=== PATIENT | female | born 1955 | race Caucasian/White ===

== ENCOUNTER 2017-06-16 15:26 | Inpatient (IN) ==
--- NOTE | 2017-06-16 16:01 | XRay Report ---
HISTORY: Reason for Exam:hypoxia, weakness FINDINGS: There are mild generalized alveolar opacities in both lungs. The greatest involvement is around the left hilum. This is a chronic or recurrent finding which was also seen in 2015. Heart size is upper limits of normal. No pleural effusion is present. Aorta is mildly tortuous. IMPRESSION: Mild bilateral infiltrates which could be due to pneumonia or congestive heart failure Interpreted and Authenticated by: Marcial Beltre 06/16/17
[2017-06-16 16:07] LABS: Basophils # (Auto) 0.1 K/mcL (0.0-0.3); Basophils % (Auto) 0.4 % (0.0-2.0); Eosinophils # (Auto) 0.5 K/mcL (0.0-0.7); Eosinophils % (Auto) 3.7 % (0.0-7.0); Granulocytes % (Auto) 78.9 % (38.0-78.0); Lymphocytes # (Auto) 1.8 K/mcL (1.5-4.8); Lymphocytes % (Auto) 13.3 % (15.5-49.0); Mean Corpuscular HGB Conc 33.3 g/dL (31.0-36.0); Mean Corpuscular Hemoglobin 32.3 pg (26.0-34.0); Monocytes # (Auto) 0.5 K/mcL (0.1-0.9); Monocytes % (Auto) 3.7 % (1.0-12.0); Platelet Count 394 K/mcL (140-440); RBC 3.89 M/mcL (4.00-5.20); Red Cell Distribution Width 14.7 % (11.5-14.5)
[2017-06-16] MEDS ORDERED: LEVOFLOXACIN 500 MG/100 ML BAG IV ONE (16:23)
[2017-06-16 16:45] LABS: ALT/SGPT 19 U/l (0-40); Albumin 3.4 gm/dL (3.2-5.2); Albumin/Globulin Ratio 0.9 (1.0-2.3); Alkaline Phosphatase 77 U/L (39-117); Blood Urea Nitrogen 67 mg/dl (8-23)
--- NOTE | 2017-06-16 17:06 | Emergency Department Note ---
Weakness HPI - General Chief complaint: Weakness Stated complaint: weakness, shakey, wheezing Time Seen by Provider: 06/16/17 15:32 Source: patient, EMS Mode of arrival: ambulatory Limitations: no limitations - History of Present Illness HPI Narrative: 61-year-old female presents with multiple complaints. Denies shortness of breath but has had a cough for the last few days. It is nonproductive. States Thursday night she just started feeling poorly in general. Positive chills, unknown fever. Mild sore throat. Mild nasal congestion. Positive nausea. No vomiting or diarrhea. No difficulty breathing or chest pain. She called EMS today because she just generally was not feeling well. Denies abdominal pain. No dysuria or frequency. EMS reports blood pressure of 90/60 by palpation and oxygen saturations in the low 80s on their arrival. Her on her arrival here she is 78% on room air. Denies shortness of breath but states she is breathing a little harder than she thought she normally does. States she lives at home with her sister and usually cares for herself. - Related Data Home Medications Medication Instructions Recorded Confirmed Acetaminophen W/Codeine #3 1 tab PO PRN PRN 07/13/15 07/13/15 [Tylenol #3] Gabapentin [Neurontin] 100 mg PO BID 07/13/15 07/13/15 Citalopram [Celexa] 20 mg PO DAILY 06/16/17 06/16/17 Cyclobenzaprine [Flexeril] 10 mg PO BIDP PRN 06/16/17 06/16/17 Furosemide [Lasix] 40 mg PO DAILY 06/16/17 06/16/17 Gabapentin 600 mg PO TIDP PRN 06/16/17 06/16/17 HYDROcodone/APAP 10/325MG [[place] 1 tab PO Q4H PRN 06/16/17 06/16/17 10-325Mg] Lisinopril [Zestril] 20 mg PO DAILY 06/16/17 06/16/17 Potassium Chloride [Klor-Con 10] 20 meq PO BID 06/16/17 06/16/17 amLODIPine [Norvasc] 5 mg PO DAILY 06/16/17 06/16/17 buPROPion [Wellbutrin Xl] 150 mg PO DAILY 06/16/17 06/16/17 Allergies Allergy/AdvReac Type Severity Reaction Status Date / Time No Known Drug Allergies Allergy Verified 06/16/17 15:31 Review of Systems All systems ED: reviewed and negative except as stated. Past Medical History - Past Medical History [facility] Narrative: Medical History Cellulitis and abscess of leg (Acute) Urinary tract infection (Acute) Medical history: Reports: hyperlipidemia, hypertension, obesity (Morbid obesity) , other (chronic neck pain). Denies: CHF Psychiatric history: Reports: anxiety, depression - Social History smoking status: Current every day smoker (1 pack per day) Alcohol use: Reports: Occasionally (2-3 times a week) Drug use: Reports: none Physical Exam Limitations: no limitations General appearance: alert, in distress (Mild tachypnea, hypoxia, speaks 1-2 words at a time on arrival.) Head: atraumatic, normocephalic, normal inspection Eye: Present: normal appearance. Absent: conjunctival injection ENT: normal exam, normal oropharynx, mucous membranes moist, TM's normal bilaterally, normal external ear exam Neck: Present: normal inspection, trachea midline. Absent: tenderness, lymphadenopathy Chest: Present: normal inspection, symmetric chest wall rise Respiratory: Present: respiratory distress (Mild tachypnea and significant hypoxia with sats in the 70s on arrival. Post oxygen she is no longer using accessory muscles and has come up to the mid 90s on oxygen.), wheezes (Faint expiratory wheezes in the bases bilaterally.). Absent: accessory muscle use Cardiovascular: Present: regular rate, normal heart sounds Abdominal: Present: soft, normal bowel sounds, other (Obese). Absent: distention, tenderness, guarding Extremities: Absent: normal inspection (Lower extremity is was slightly red, dry , flaky skin throughout. Significant 2+ pitting edema bilaterally. States her legs are actually better than they usually are.) Neurological: Present: alert, oriented X3 Psychiatric: Present: normal affect, normal mood Skin: Present: warm, dry, intact, normal color, other (Please see extremity assessment) Course Course Narrative: Dr. Gordon agrees to accept the patient Vital Signs Pulse Oximetry (%) 77 L 06/16/17 15:30 Pulse Rate 99 H 06/16/17 19:48 Respiratory Rate 16 06/16/17 19:48 Blood Pressure 118/62 06/16/17 18:55 Pulse Oximetry (%) 90 06/16/17 19:47 Weakness - Lab Data Lab results reviewed: Yes I reviewed the patient's lab results. Result diagrams: 06/16/17 15:45 06/16/17 15:45 Lab Results 06/16/17 06/16/17 06/16/17 Range/Units 15:45 15:45 15:45 WBC 13.3 H (4.5-11.0) K/mcL RBC 3.89 L (4.00-5.20) M/mcL Hgb 12.6 (12.0-15.0) g/dL Hct 37.7 (36.0-48.0) % MCV 97.0 (80.0-100.0) fL MCH 32.3 (26.0-34.0) pg MCHC 33.3 (31.0-36.0) g/dL RDW 14.7 H (11.5-14.5) % Plt Count 394 (140-440) K/mcL MPV 7.9 (7.4-10.4) fL Gran % 78.9 H (38.0-78.0) % Lymph % (Auto) 13.3 L (15.5-49.0) % [place] % (Auto) 3.7 (1.0-12.0) % Eos % (Auto) 3.7 (0.0-7.0) % Baso % (Auto) 0.4 (0.0-2.0) % Gran # 10.5 H (1.8-8.0) K/mcL Lymph # (Auto) 1.8 (1.5-4.8) K/mcL [place] # (Auto) 0.5 (0.1-0.9) K/mcL Eos # (Auto) 0.5 (0.0-0.7) K/mcL Baso # (Auto) 0.1 (0.0-0.3) K/mcL VBG Lactic Acid 2.6 H (0.5-2.2) mmol/L Sodium 133 (133-145) mmol/L Potassium 5.4 H (3.3-5.1) mmol/L Chloride 91 L (96-108) mmol/L Carbon Dioxide 22 (22-30) mmol/L Anion Gap 20.0 H (8-16) BUN 67 H (8-23) mg/dl Creatinine 3.0 H (0.6-1.1) mg/dl GFR Calculation 16 Glucose 131 H (70-105) mg/dL Calcium 7.4 L (8.6-10.4) mg/dl Total Bilirubin 0.2 (0.0-1.0) mg/dL AST 16 (0-37) U/l ALT 19 (0-40) U/l Alkaline Phosphatase 77 (39-117) U/L Troponin T (0-0.03) ng/ml NT-Pro-B Natriuret Pep 577.0 H (0-125) pg/ml Total Protein 7.4 (5.9-8.4) gm/dL Albumin 3.4 (3.2-5.2) gm/dL Globulin 4.0 H (2.2-3.7) gm/dL Albumin/Globulin Ratio 0.9 L (1.0-2.3) Urine Color Urine Appearance Urine pH (5.0-9.0) Ur Specific [place] (1.000-1.035) Urine Protein (NEG) mg/dL Urine Glucose (UA) (NEG) mg/dL Urine Ketones (NEG) mg/dL Urine Occult Blood (<0.03) mg/dL Urine Nitrate (NEG) Urine Bilirubin (NEG) mg/dL Urine Urobilinogen (NEG) mg/dL Ur Leukocyte Esterase (NEG) /uL Ur Culture Indicated? Mycoplasma pneumon IgM (NEGATIVE) 06/16/17 06/16/17 06/16/17 Range/Units 15:45 15:57 17:22 WBC (4.5-11.0) K/mcL RBC (4.00-5.20) M/mcL Hgb (12.0-15.0) g/dL Hct (36.0-48.0) % MCV (80.0-100.0) fL MCH (26.0-34.0) pg MCHC (31.0-36.0) g/dL RDW (11.5-14.5) % Plt Count (140-440) K/mcL MPV (7.4-10.4) fL Gran % (38.0-78.0) % Lymph % (Auto) (15.5-49.0) % [place] % (Auto) (1.0-12.0) % Eos % (Auto) (0.0-7.0) % Baso % (Auto) (0.0-2.0) % Gran # (1.8-8.0) K/mcL Lymph # (Auto) (1.5-4.8) K/mcL [place] # (Auto) (0.1-0.9) K/mcL Eos # (Auto) (0.0-0.7) K/mcL Baso # (Auto) (0.0-0.3) K/mcL VBG Lactic Acid (0.5-2.2) mmol/L Sodium (133-145) mmol/L Potassium (3.3-5.1) mmol/L Chloride (96-108) mmol/L Carbon Dioxide (22-30) mmol/L Anion Gap (8-16) BUN (8-23) mg/dl Creatinine (0.6-1.1) mg/dl GFR Calculation Glucose (70-105) mg/dL Calcium (8.6-10.4) mg/dl Total Bilirubin (0.0-1.0) mg/dL AST (0-37) U/l ALT (0-40) U/l Alkaline Phosphatase (39-117) U/L Troponin T < 0.01 (0-0.03) ng/ml NT-Pro-B Natriuret Pep (0-125) pg/ml Total Protein (5.9-8.4) gm/dL Albumin (3.2-5.2) gm/dL Globulin (2.2-3.7) gm/dL Albumin/Globulin Ratio (1.0-2.3) Urine Color Yellow Urine Appearance Clear Urine pH 5.0 (5.0-9.0) Ur Specific [place] 1.014 (1.000-1.035) Urine Protein Neg (NEG) mg/dL Urine Glucose (UA) Negative (NEG) mg/dL Urine Ketones Neg (NEG) mg/dL Urine Occult Blood Neg (<0.03) mg/dL Urine Nitrate Neg (NEG) Urine Bilirubin Neg (NEG) mg/dL Urine Urobilinogen Neg (NEG) mg/dL Ur Leukocyte Esterase Neg (NEG) /uL Ur Culture Indicated? No Mycoplasma pneumon IgM Negative (NEGATIVE) - Radiology Data Radiology results reviewed: Yes I reviewed the patient's radiology results. Disposition Pt seen by [employer]END[facility]/PA only: Yes Clinical Impression: Bilateral pulmonary infiltrates on chest x-ray, Weakness, Pedal edema, Morbid obesity Disposition: Xfer As Inpt ([facility]) Condition: Fair
[2017-06-16] MEDS ORDERED: 0.9 % SODIUM CHLORIDE 1,000 ML IV SCH ×2 (17:15→18:36)
[2017-06-16] MEDS ORDERED: 0.9 % SODIUM CHLORIDE 1,000 ML IV ONE (17:20)
[2017-06-16 17:44] LABS: Appearance,Urine CLEAR; Bilirubin,Urine NEG (NEG); Color,Urine YELLOW; Glucose,Urine (UA) NEGATIVE (NEG); Leukocyte Esterase,Urine NEG /uL (NEG); Protein,Urine NEG (NEG); Specific Gravity,Urine 1.014 (1.000-1.035); Urine Blood NEG mg/dL (<0.03); Urobilinogen,Urine NEG (NEG)
[2017-06-16] MEDS ORDERED: NALOXONE HCL 0.4 MG/ML VIAL IV PRN (18:36)
[2017-06-16] MEDS ORDERED: ONDANSETRON 4 MG/2 ML VIAL IV PRN (18:36)
[2017-06-16] MEDS ORDERED: ACETAMINOPHEN 325 MG TABLET PO PRN (18:36)
[2017-06-16] MEDS ORDERED: AZITHROMYCIN 500 MG in DEXTROSE 5% IN WATER 250 ML IV ONE (18:36)
[2017-06-16] MEDS ORDERED: HYDROcodone/APAP 10/325MG TABLET PO PRN (18:38)
[2017-06-16] MEDS ORDERED: CYCLOBENZAPRINE 10 MG TABLET PO PRN (18:38)
--- NOTE | 2017-06-16 18:42 | Internal Med History&Physical ---
Medical - H&P: HPI Patient information: Note initiated : 06/16/17 at 6:39 pm Service Date, if different from initiated Date: [] Patient: Destiny Guy a 61 y/o F admitted on for weakness, shakey, wheezing. Chief Complaint: [] History of present illness: Ms. Guy is a 61 year old Female with h/o hypertension, morbid obesity, chronic kidney disease, COPD long-term smoker who lives with her sister at the house presents to the emergency today because of weakness going on for the last 3-4 days. The patient notes that for the last 3-4 days she has had difficulty in getting up off a chair or bed and then moving around. She admits to being fatigued finding it difficult to carry out her daily activities. She should has shortness of breath on exertion. She denies any other acute complaints. The patient denies any headache, has constant runny nose, no changes in vision or hearing, no difficulty in swallowing, she has shss of breath on exertion, denies any cough, denies any fever or chills denies any nausea vomiting abdominal pain, no black complaints, no acute joint pains or new skin rashes, has chronic lower extremity erythema in bilateral legs. She has chronic depression, denies any suicidal ideations. Denies any acute skin rashes. No bleeding no black stools no hematuria In the emergency room, the patient was hypoxic on presentation, which responded well to 2 L of oxygen. The patient chest x-ray shows bilateral pneumonia, she has leukocytosis and elevated lactic acid at 2.6. Her creatinine was 3.0 which is nearly at her baseline. Her potassium is mildly elevated at 5.4, patient takes lisinopril and potassium supplements at home she also takes some Lasix. The patient EKG shows sinus rhythm, poor voltage, possible anterior septal Mi old The patient is being admitted to the hospital for further management All systems: reviewed and no additional remarkable complaints except as stated ( see HPI) Medical - H&P: PMH Medical history: Medical History Cellulitis and abscess of leg (Acute) Urinary tract infection (Acute) COPD Morbid obesity pre diabetes Hypertension Chronic pain Chronic kidney disease Surgical history: history of section around 40 years ago Pertinent family history: mother has history of lymphoma Social history: lives with her sister Heavy [id number]-year history Heavy alcohol use,lasting more than a week ago Denies any recreational drug use Medical - H&P: Meds Home Medications Medication Instructions Recorded Confirmed Type Acetaminophen W/Codeine #3 1 tab PO PRN PRN 07/13/15 07/13/15 History [Tylenol #3] Gabapentin [Neurontin] 100 mg PO BID 07/13/15 07/13/15 History Citalopram [Celexa] 20 mg PO DAILY 06/16/17 06/16/17 History Cyclobenzaprine [Flexeril] 10 mg PO BIDP PRN 06/16/17 06/16/17 History Furosemide [Lasix] 40 mg PO DAILY 06/16/17 06/16/17 History Gabapentin 600 mg PO TIDP PRN 06/16/17 06/16/17 History HYDROcodone/APAP 10/325MG [[place] 1 tab PO Q4H PRN 06/16/17 06/16/17 History 10-325Mg] Lisinopril [Zestril] 20 mg PO DAILY 06/16/17 06/16/17 History Potassium Chloride [Klor-Con 10] 20 meq PO BID 06/16/17 06/16/17 History amLODIPine [Norvasc] 5 mg PO DAILY 06/16/17 06/16/17 History buPROPion [Wellbutrin Xl] 150 mg PO DAILY 06/16/17 06/16/17 History Allergies Allergy/AdvReac Type Severity Reaction Status Date / Time No Known Drug Allergies Allergy Verified 06/16/17 15:31 Medical - H&P: Exam - Constitutional Vitals: Pulse Resp BP Pulse Ox 101 H 16 118/62 91 06/16/17 18:02 06/16/17 17:35 06/16/17 17:35 06/16/17 18:02 Exam: GENERAL: The patient is a well-developed, well-nourished in no apparent distress. Is alert and oriented x3. morbidly obese VITAL SIGNS: Reviewed and as noted elsewhere. HEENT: Head is normocephalic and atraumatic. Extraocular muscles are intact. Pupils are equal, round, and reactive to light. Nares appeared normal. Mouth appears any without lesions. Mucous membranes are moist. NECK: Normal to inspection, Supple, No lymphadenopathy or thyromegaly. short neck LUNGS: Air entry equal on both sides, poor air entry bilaterally, bilateral expiratory wheezes, no crackles heard. No accessory muscles of respiration HEART: Regular rate and rhythm normal, S1 and S2 heard, no Gallop, S3 or Rub Noted, No Gross murmur heard.distant heart sounds ABDOMEN: Soft, nontender, and nondistended. Positive bowel sounds. No obvious hepatosplenomegaly was noted. large pannus difficult to palpate deep organs EXTREMITIES: No cyanosis, clubbing, bilateral lower extremity edema +2, bilateral lower extremity venous stasis, poorly kept nails NEUROLOGIC: Cranial nerves II through XII are grossly intact. Motor and Sensory System Grossly Intact PSYCHIATRIC: Normal affect, Normal Mood. Appropriate Behavior. SKIN: No ulceration or wounds noted, No jaundice, No rash noted. Medical - H&P: Reslt - Labs CBC & Chem 7: 06/16/17 15:45 06/16/17 15:45 Labs: Short CBC 06/16/17 Range/Units 15:45 WBC 13.3 H (4.5-11.0) K/mcL Hgb 12.6 (12.0-15.0) g/dL Hct 37.7 (36.0-48.0) % Plt Count 394 (140-440) K/mcL BMP 06/16/17 15:45 Sodium 133 Potassium 5.4 H Chloride 91 L Carbon Dioxide 22 BUN 67 H Creatinine 3.0 H Glucose 131 H Calcium 7.4 L Cardiac Enzymes 06/16/17 Range/Units 15:45 Troponin T < 0.01 (0-0.03) ng/ml Liver Function 06/16/17 Range/Units 15:45 Total Bilirubin 0.2 (0.0-1.0) mg/dL AST 16 (0-37) U/l ALT 19 (0-40) U/l Alkaline Phosphatase 77 (39-117) U/L Albumin 3.4 (3.2-5.2) gm/dL Urine 06/16/17 Range/Units 17:22 Urine Color Yellow Urine Appearance Clear Urine pH 5.0 (5.0-9.0) Ur Specific [place] 1.014 (1.000-1.035) Urine Protein Neg (NEG) mg/dL Urine Glucose (UA) Negative (NEG) mg/dL Medical - H&P: A/P - Narrative A/P Narrative: A/P Acute hypoxic respiratory failure Sepsis with lactic acidosis Chronic renal failure Pneumonia, Community Acquired Acute COPD Exacerbation Morbid Obesity Hypertension Hyperkalemia Depression Chronic Pain Plan Admit to tele status Oxygen Y nasal cannula to keep oxygen saturation more than 90. BiPAP if needed vision and is also okay with intubation IV antibiotics for pneumonia, IV Rocephin, IV vancomycin, IV azithromycin, given high prevalence of influenza also start on Tamiflu. Vancomycin for coverage of possible staph infection which is usually seen in patients with influenza De-escalate antibiotics based on culture, blood culture sent by the ED, RT to induce some respiratory secretions DuoNeb's every 4 hours, IV steroids for COPD exacerbation ResumeHome blood pressure medications Trend lactic acid, IV fluids Monitor potassium, hold home dose of potassium chloride Given bilateral infiltrates that is a possibility patient can have a decline in her respiratory status and we will observe the patient closely resume home medications for depression and chronic pain DVT-heparin subcutaneous Regular diet DO NOT RESUSCITATE CODE STATUS-patient is okay with BiPAP and intubation
[2017-06-16] MEDS ORDERED: THIAMINE 100 MG in 0.9 % SODIUM CHLORIDE 50 ML IV ONE (19:26)
[2017-06-16] MEDS: IPRATROPIUM/ALBUTEROL 3 ML AMPUL.NEB NEB SCH ×2 (19:37→23:23)
[2017-06-16] MEDS ORDERED: cefTRIAXone 2 GM VIAL ONE (20:05)
[2017-06-16] MEDS: cefTRIAXone 2 GM in DEXTROSE 5% IN WATER 50 ML IV SCH (20:20)
[2017-06-16] MEDS: methylPREDNISolone SOD SUCC 125 MG/2 ML VIAL IV SCH ×2 (20:23→20:34)
[2017-06-16] MEDS: HEPARIN 5,000 UNIT/ML VIAL SQ SCH (20:23)
[2017-06-16] MEDS ORDERED: GABAPENTIN 300 MG CAPSULE PO PRN (21:00)
[2017-06-16] MEDS ORDERED: 0.9 % SODIUM CHLORIDE 100 ML IV ONE (21:04)
[2017-06-16] MEDS: CLOTRIMAZOLE CRM 1% 1 DOSE TUBE TOPICAL SCH (21:59)
[2017-06-16] MEDS: 0.9 % SODIUM CHLORIDE 10 ML SYRINGE IV SCH (22:00)
[2017-06-17] MEDS: IPRATROPIUM/ALBUTEROL 3 ML AMPUL.NEB NEB SCH ×6 (02:30→23:07)
[2017-06-17 05:37] LABS: Basophils # (Auto) 0 K/mcL (0.0-0.3); Basophils % (Auto) 0.1 % (0.0-2.0); Eosinophils # (Auto) 0 K/mcL (0.0-0.7); Eosinophils % (Auto) 0.3 % (0.0-7.0); Granulocytes % (Auto) 93.2 % (38.0-78.0); Lymphocytes # (Auto) 0.6 K/mcL (1.5-4.8); Lymphocytes % (Auto) 6.2 % (15.5-49.0); Mean Cell Volume 97.9 fL (80.0-100.0); Mean Corpuscular HGB Conc 32.6 g/dL (31.0-36.0); Mean Corpuscular Hemoglobin 31.9 pg (26.0-34.0); Monocytes # (Auto) 0 K/mcL (0.1-0.9); Monocytes % (Auto) 0.2 % (1.0-12.0); Platelet Count 372 K/mcL (140-440); RBC 3.97 M/mcL (4.00-5.20)
[2017-06-17] MEDS: 0.9 % SODIUM CHLORIDE 10 ML SYRINGE IV SCH ×3 (05:52→22:29)
[2017-06-17] MEDS: methylPREDNISolone SOD SUCC 125 MG/2 ML VIAL IV SCH ×3 (05:52→22:28)
[2017-06-17 06:35] LABS: ALT/SGPT 16 U/l (0-40); Albumin 3.1 gm/dL (3.2-5.2); Albumin/Globulin Ratio 0.8 (1.0-2.3); Alkaline Phosphatase 74 U/L (39-117); Bilirubin,Direct < 0.2 mg/dL (0.0-0.3); Blood Urea Nitrogen 52 mg/dl (8-23); Gamma Glutamyl Transpeptidase 46 U/L (5-36); Uric Acid 10.4 mg/dL (2.5-8.0)
[2017-06-17] MEDS ORDERED: INSULIN REGULAR, HUMAN 1 UNIT/0.01 ML UNIT IV ONE (07:18)
[2017-06-17] MEDS ORDERED: DEXTROSE 50% 50 ML VIAL IV ONE (07:18)
[2017-06-17] MEDS ORDERED: SODIUM POLYSTYRENE SULFONATE 15 GM/60 ML SUSPENSION PO ONE ×3 (07:18→20:15)
[2017-06-17] MEDS ORDERED: CALCIUM GLUCONATE 4.65 MEQ/10 ML VIAL IV ONE (07:18)
[2017-06-17] MEDS ORDERED: FUROSEMIDE 40 MG/4 ML VIAL IV ONE (07:18)
[2017-06-17] MEDS ORDERED: ALBUTEROL SULFATE 5 MG/ML NEB SOLUTION BOTTLE NEB ONE (07:19)
[2017-06-17] MEDS ORDERED: CALCIUM GLUCONATE 9.3 MEQ in DEXTROSE 5% IN WATER 100 ML IV ONE (08:00)
[2017-06-17] MEDS: MULTIVIT,THER IRON,CA,FA & MIN 1 TABLET PO SCH (08:36)
[2017-06-17] MEDS: FOLIC ACID 1 MG TABLET PO SCH (08:36)
[2017-06-17] MEDS: CITALOPRAM 20 MG TABLET PO SCH (08:36)
[2017-06-17] MEDS: buPROPion 150 MG TAB.XL.24H PO SCH (08:36)
[2017-06-17] MEDS: amLODIPine 5 MG TABLET PO SCH (08:36)
[2017-06-17] MEDS: HEPARIN 5,000 UNIT/ML VIAL SQ SCH ×2 (08:37→20:57)
[2017-06-17] MEDS: AZITHROMYCIN 250 MG in DEXTROSE 5% IN WATER 250 ML IV SCH (10:23)
[2017-06-17] MEDS: THIAMINE 100 MG in 0.9 % SODIUM CHLORIDE 50 ML IV SCH (10:23)
[2017-06-17] MEDS: cefTRIAXone 2 GM in DEXTROSE 5% IN WATER 50 ML IV SCH (10:24)
[2017-06-17] MEDS: OSELTAMIVIR PHOSPHATE 75 MG CAPSULE PO SCH ×2 (15:46→20:57)
[2017-06-17] MEDS: CLOTRIMAZOLE CRM 1% 1 DOSE TUBE TOPICAL SCH ×2 (16:12→21:07)
--- NOTE | 2017-06-17 16:29 | Internal Med Progress Note ---
Medical - PN: Subj Patient information: Note initiated : 06/17/17 at 4:25 pm Service Date, if different from initiated Date: [] Patient: Destiny Guy 61 y/o F admitted on 06/16/17 for Weakness, Shakey, Wheezing/Pneumonia. Chief Complaint: [] Interval history: Ms. Guy is a 61 year old Female with h/o hypertension, morbid obesity, chronic kidney disease, COPD long-term smoker who lives with her sister at the house presents to the emergency today because of weakness going on for the last 3-4 days. The patient notes that for the last 3-4 days she has had difficulty in getting up off a chair or bed and then moving around. She admits to being fatigued finding it difficult to carry out her daily activities. She should has shortness of breath on exertion. She denies any other acute complaints. The patient denies any headache, has constant runny nose, no changes in vision or hearing, no difficulty in swallowing, she has shss of breath on exertion, denies any cough, denies any fever or chills denies any nausea vomiting abdominal pain, no black complaints, no acute joint pains or new skin rashes, has chronic lower extremity erythema in bilateral legs. She has chronic depression, denies any suicidal ideations. Denies any acute skin rashes. No bleeding no black stools no hematuria In the emergency room, the patient was hypoxic on presentation, which responded well to 2 L of oxygen. The patient chest x-ray shows bilateral pneumonia, she has leukocytosis and elevated lactic acid at 2.6. Her creatinine was 3.0 which is nearly at her baseline. Her potassium is mildly elevated at 5.4, patient takes lisinopril and potassium supplements at home she also takes some Lasix. The patient EKG shows sinus rhythm, poor voltage, possible anterior septal Mi old The patient is being admitted to the hospital for further management June 17 patient seen and examined, overnight patient became confused, was into acute respiratory acidosis secondary to CO2 retention, placed on BiPAP tolerated well this morning she was much more awake and nearly back to baseline. The patient did work shows improvement in renal function, she was hyperkalemic this AM, with K of 6.6, Hyperkalemia protocol intiated, the patient is symptomatically still complains of weakness Pertinent ROS: Denies headache, dizziness Denies chest pain, palpitations Denies cough or shortness of breath Denies abdominal pain, nausea or vomiting. - Constitutional Vitals: Vital Signs Temp Pulse Resp BP Pulse Ox 98.3 F 106 H 21 128/102 92 06/17/17 16:00 06/17/17 11:45 06/17/17 16:00 06/17/17 16:00 06/17/17 16:00 Period Temp Pulse Resp BP Sys/Appiah Pulse Ox Last 24 Hr 97.7 F-98.7 F 92-107 16-30 102-211/48-175 87-99 Intake and Output 06/17/17 06/17/17 06/17/17 05:59 13:59 21:59 Intake Total 1401 / 1401 451 / 451 760 / 760 Output Total 2250 / 2250 1400 / 1400 1600 / 1600 Balance -849 / -849 -949 / -949 -840 / -840 Weight 346 lb Patient Weight 06/18/17 05:59 Weight 346 lb Intake & Output: Intake & Output 06/17/17 06/17/17 06/17/17 05:59 13:59 21:59 Intake Total 1401 / 1401 451 / 451 760 / 760 Output Total 2250 / 2250 1400 / 1400 1600 / 1600 Balance -849 / -849 -949 / -949 -840 / -840 Weight 346 lb Intake: IV 1401 / 1401 451 / 451 Sodium Chloride 0.9% 1,000 ml @ 1000 / 1000 150 mls/hr IV ONCE ONE Rx#: [id number] Zithromax 250 mg In Dextrose 5% 250 / 250 in Water 250 ml @ 250 mls/hr IV Q24H [facility] Rx#:[id number] Vitamin B1 100 mg In Sodium 31 / 31 Chloride 0.9% 50 ml @ 50 mls/hr IV Q24H [facility] Rx#:[id number] Rocephin 2 gm In Dextrose 5% in 50 / 50 Water 50 ml @ 100 mls/hr IV Q24H [facility] Rx#:[id number] Oral 760 / 760 Output: Urine Catheter Amount 2250 / 2250 1400 / 1400 1500 / 1500 Void Amount 100 / 100 Other: # Bowel Movements 1 Exam: Constitutional; Afebrile, cooperative, alert, not in distress.morbidly obese Eyes- No icterus, , No periorbital swelling Ears- Ext ear normal, hearing normal to conversation. Neck- Midline trachea, supple Respiratory system: Air Entry equal on both sides,poor air entry, bilateral expiratory wheezes, apparently not significantly changed since yesterday CVS- Rate rhythm regular, S1,S2 heard, no gallop, no rub. 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 Medical - PN: Obj Da - Labs CBC & Chem 7: 06/17/17 04:00 06/17/17 04:00 Labs: Abnormal Lab Results 06/17/17 06/17/17 06/16/17 04:00 04:00 15:45 WBC RBC 3.97 L RDW 15.0 H Gran % 93.2 H Lymph % (Auto) 6.2 L [place] % (Auto) 0.2 L Gran # 9.6 H Lymph # (Auto) 0.6 L [place] # (Auto) 0 L VBG Lactic Acid 2.6 H Potassium 6.6 H* Chloride Anion Gap BUN 52 H Creatinine 2.1 H Glucose 164 H Uric Acid 10.4 H Calcium 7.8 L GGT 46 H NT-Pro-B Natriuret Pep Albumin 3.1 L Globulin 4.1 H Albumin/Globulin Ratio 0.8 L 06/16/17 06/16/17 15:45 15:45 WBC 13.3 H RBC 3.89 L RDW 14.7 H Gran % 78.9 H Lymph % (Auto) 13.3 L [place] % (Auto) Gran # 10.5 H Lymph # (Auto) [place] # (Auto) VBG Lactic Acid Potassium 5.4 H Chloride 91 L Anion Gap 20.0 H BUN 67 H Creatinine 3.0 H Glucose 131 H Uric Acid Calcium 7.4 L GGT NT-Pro-B Natriuret Pep 577.0 H Albumin Globulin 4.0 H Albumin/Globulin Ratio 0.9 L Meds: Medications Acetaminophen (Tylenol) 650 mg PO Q6HP PRN PRN Reason: PAIN/FEVER > 101 Hydrocodone Bitart/Acetaminophen ([place] 10/325mg) 1 tab PO Q4H PRN PRN Reason: Pain Last Admin: 06/16/17 22:04 Dose: 1 tab Albuterol/Ipratropium (Duoneb) 3 ml NEB Q4HRT [facility] Last Admin: 06/17/17 14:51 Dose: Not Given Amlodipine Besylate (Norvasc) 5 mg PO DAILY [facility] Last Admin: 06/17/17 08:36 Dose: 5 mg Bupropion HCl (Wellbutrin Xl) 150 mg PO DAILY [facility] Last Admin: 06/17/17 08:36 Dose: 150 mg Citalopram Hydrobromide (Celexa) 20 mg PO DAILY [facility] Last Admin: 06/17/17 08:36 Dose: 20 mg Clotrimazole (Mycelex Crm 1%) 1 dose TOPICAL BID [facility] Last Admin: 06/17/17 16:12 Dose: 1 dose Cyclobenzaprine HCl (Flexeril) 10 mg PO BIDP PRN PRN Reason: Pain Folic Acid (Folic Acid) 1 mg PO DAILY [facility] Last Admin: 06/17/17 08:36 Dose: 1 mg Gabapentin (Neurontin) 300 mg PO TIDP PRN PRN Reason: Pain Heparin Sodium (Porcine) (Heparin) 5,000 unit SQ Q12 [facility] Last Admin: 06/17/17 08:37 Dose: 5,000 unit Azithromycin 250 mg/ Dextrose 250 mls @ 250 mls/hr IV Q24H [facility] Stop: 06/20/17 10:59 Last Infusion: 06/17/17 12:00 Dose: Infused Ceftriaxone Sodium 2 gm/ (Dextrose) 50 mls @ 100 mls/hr IV Q24H [facility] Last Infusion: 06/17/17 11:25 Dose: Infused Thiamine HCl 100 mg/ Sodium (Chloride) 51 mls @ 50 mls/hr IV Q24H [facility] Stop: 06/19/17 12:02 Last Infusion: 06/17/17 11:00 Dose: 50 mls/hr Iron Carb/Multivit/[place]/Folic Acid (Multivitamin W/Minerals) 1 tab PO DAILY [facility] Last Admin: 06/17/17 08:36 Dose: 1 tab Methylprednisolone Sodium Succinate (Solu-Medrol) 62.5 mg IV Q8 [facility] Last Admin: 06/17/17 15:08 Dose: 62.5 mg Naloxone HCl (Narcan) 0.1 mg IV Q2MIN PRN PRN Reason: Opiate Reversal Ondansetron HCl (Zofran) 4 mg IV Q4HP PRN PRN Reason: Nausea And Vomiting Oseltamivir Phosphate (Tamiflu) 75 mg PO BID [facility] Last Admin: 06/17/17 15:46 Dose: 75 mg Sodium Chloride (Saline Flush) 10 ml IV Q8 [facility] Last Admin: 06/17/17 15:42 Dose: 10 ml Medical - PN: A/P - Time Spent With Patient Total time spent is greater than 50% in coordination of care (as documented) at patient's floor/unit and/or counseling patient: - Narrative A/P Narrative: A/P Acute hypoxic/ hypercapenic respiratory failure Sepsis with lactic acidosis, resolved Chronic renal failure Pneumonia, Community Acquired Acute COPD Exacerbation Morbid Obesity Hypertension Hyperkalemia Depression Chronic Pain Plan Oxygen via nasal cannula to keep oxygen saturation more than 90. BiPAP was needed last night, Repeat labs and abg today continue IV antibiotics for pneumonia, IV Rocephin, IV vancomycin, IV azithromycin, given high prevalence of influenza also start on Tamiflu. Vancomycin for coverage of possible staph infection which is usually seen in patients with influenza BLood culture is positive for staph aureus. De-escalate antibiotics based on culture, blood culture sent by the ED, RT to induce some respiratory secretions DuoNeb's every 4 hours, IV steroids for COPD exacerbation Resume Home blood pressure medications lactate is normal now k high, radhika gluconate given, iv glucose insulin given, haart albuterol neb, kayexalate given, repeat Chemistry. Given bilateral infiltrates that is a possibility patient can have a decline in her respiratory status and we will observe the patient closely resume home medications for depression and chronic pain DVT-heparin subcutaneous Regular diet DO NOT RESUSCITATE CODE STATUS-patient is okay with BiPAP and intubation
[2017-06-17 19:29] LABS: Blood Urea Nitrogen 45 mg/dl (8-23)
[2017-06-17] MEDS ORDERED: SODIUM POLYSTYRENE SULFONATE 15 GM/60 ML SUSPENSION ONE (20:47)
[2017-06-18] MEDS: IPRATROPIUM/ALBUTEROL 3 ML AMPUL.NEB NEB SCH ×6 (02:53→23:32)
[2017-06-18] MEDS: methylPREDNISolone SOD SUCC 125 MG/2 ML VIAL IV SCH ×3 (05:36→21:07)
[2017-06-18] MEDS: 0.9 % SODIUM CHLORIDE 10 ML SYRINGE IV SCH ×8 (05:37→21:07)
[2017-06-18 05:59] LABS: ALT/SGPT 15 U/l (0-40); Albumin 2.9 gm/dL (3.2-5.2); Albumin/Globulin Ratio 0.7 (1.0-2.3); Alkaline Phosphatase 73 U/L (39-117); Bilirubin,Direct < 0.2 mg/dL (0.0-0.3); Blood Urea Nitrogen 39 mg/dl (8-23); Gamma Glutamyl Transpeptidase 51 U/L (5-36); Uric Acid 9.7 mg/dL (2.5-8.0)
[2017-06-18 07:09] LABS: Basophils # (Auto) 0.1 K/mcL (0.0-0.3); Basophils % (Auto) 0.8 % (0.0-2.0); Eosinophils # (Auto) 0.2 K/mcL (0.0-0.7); Eosinophils % (Auto) 1.5 % (0.0-7.0); Lymphocytes # (Auto) 1.1 K/mcL (1.5-4.8); Lymphocytes % (Auto) 7.7 % (15.5-49.0); Mean Cell Volume 97.1 fL (80.0-100.0); Mean Corpuscular HGB Conc 32.7 g/dL (31.0-36.0); Mean Corpuscular Hemoglobin 31.8 pg (26.0-34.0); Monocytes # (Auto) 0.3 K/mcL (0.1-0.9); Platelet Count 437 K/mcL (140-440); RBC 4.39 M/mcL (4.00-5.20); Red Cell Distribution Width 14.8 % (11.5-14.5)
[2017-06-18] MEDS ORDERED: SODIUM POLYSTYRENE SULFONATE 15 GM/60 ML SUSPENSION PO ONE (07:34)
[2017-06-18] MEDS: buPROPion 150 MG TAB.XL.24H PO SCH (08:33)
[2017-06-18] MEDS: FOLIC ACID 1 MG TABLET PO SCH (08:33)
[2017-06-18] MEDS: MULTIVIT,THER IRON,CA,FA & MIN 1 TABLET PO SCH (08:33)
[2017-06-18] MEDS: CITALOPRAM 20 MG TABLET PO SCH (08:33)
[2017-06-18] MEDS: OSELTAMIVIR PHOSPHATE 75 MG CAPSULE PO SCH ×2 (08:33→21:07)
[2017-06-18] MEDS: cefTRIAXone 2 GM in DEXTROSE 5% IN WATER 50 ML IV SCH (08:34)
[2017-06-18] MEDS: amLODIPine 5 MG TABLET PO SCH (08:34)
[2017-06-18] MEDS: FONDAPARINUX SODIUM 2.5 MG/0.5 ML SYRINGE SQ SCH (08:37)
--- NOTE | 2017-06-18 08:47 | XRay Report ---
HISTORY: Reason for Exam:pneumonia FINDINGS: The heart is mildly enlarged and has increased in size since 06/16/17. Generalized alveolar opacities are present throughout both lungs. There is no lobar consolidation. The pulmonary vessels appear engorged. No pleural effusion is detected. The opacification of the lung parenchyma has become slightly worse. IMPRESSION: Widespread bilateral alveolar opacities which could be due to pulmonary edema or widespread pneumonia. This has become worse and the heart is larger today. Interpreted and Authenticated by: Marcial Beltre 06/18/17
[2017-06-18 09:50] LABS: Appearance,Urine CLEAR; Bilirubin,Urine NEG (NEG); Color,Urine YELLOW; Glucose,Urine (UA) NEGATIVE (NEG); Leukocyte Esterase,Urine NEG /uL (NEG); Protein,Urine NEG (NEG); Specific Gravity,Urine 1.017 (1.000-1.035); Urine Blood NEG mg/dL (<0.03); Urobilinogen,Urine NEG (NEG)
[2017-06-18] MEDS: CLOTRIMAZOLE CRM 1% 1 DOSE TUBE TOPICAL SCH ×2 (09:57→21:08)
[2017-06-18] MEDS: AZITHROMYCIN 250 MG in DEXTROSE 5% IN WATER 250 ML IV SCH (10:02)
[2017-06-18] MEDS: FUROSEMIDE 40 MG TABLET PO SCH (10:40)
[2017-06-18] MEDS: THIAMINE 100 MG in 0.9 % SODIUM CHLORIDE 50 ML IV SCH (11:38)
[2017-06-18] MEDS ORDERED: VANCOMYCIN PER PHARMACY IV SCH (14:53)
--- NOTE | 2017-06-18 15:04 | Internal Med Progress Note ---
Medical - PN: Subj Patient information: Note initiated : 06/18/17 at 2:59 pm Service Date, if different from initiated Date: [] Patient: Destiny Guy 61 y/o F admitted on 06/16/17 for Weakness, Shakey, Wheezing/Pneumonia. Chief Complaint: [] Interval history: Ms. Guy is a 61 year old Female with h/o hypertension, morbid obesity, chronic kidney disease, COPD long-term smoker who lives with her sister at the house presents to the emergency today because of weakness going on for the last 3-4 days. The patient notes that for the last 3-4 days she has had difficulty in getting up off a chair or bed and then moving around. She admits to being fatigued finding it difficult to carry out her daily activities. She should has shortness of breath on exertion. She denies any other acute complaints. The patient denies any headache, has constant runny nose, no changes in vision or hearing, no difficulty in swallowing, she has shss of breath on exertion, denies any cough, denies any fever or chills denies any nausea vomiting abdominal pain, no black complaints, no acute joint pains or new skin rashes, has chronic lower extremity erythema in bilateral legs. She has chronic depression, denies any suicidal ideations. Denies any acute skin rashes. No bleeding no black stools no hematuria In the emergency room, the patient was hypoxic on presentation, which responded well to 2 L of oxygen. The patient chest x-ray shows bilateral pneumonia, she has leukocytosis and elevated lactic acid at 2.6. Her creatinine was 3.0 which is nearly at her baseline. Her potassium is mildly elevated at 5.4, patient takes lisinopril and potassium supplements at home she also takes some Lasix. The patient EKG shows sinus rhythm, poor voltage, possible anterior septal Mi old The patient is being admitted to the hospital for further management June 17 patient seen and examined, overnight patient became confused, was into acute respiratory acidosis secondary to CO2 retention, placed on BiPAP tolerated well this morning she was much more awake and nearly back to baseline. The patient did work shows improvement in renal function, she was hyperkalemic this AM, with K of 6.6, Hyperkalemia protocol intiated, the patient is symptomatically still complains of weakness June 18 Patient seen examined, doing well this AM, in good spirits, not used bipap overnight, labs show improved K but still high at 5.3, wbc upto 14K patient was supposed to be on vancomycin, but it seems it not on it. Will start again. Fist blood culture is staph aureus, sensitivities pending pt on rocephin and zithromax, repeat cx neg cxr shows somewhat worsening pna, but clinically pt is better, feels stronger repeat blood cx neg growth so far Pertinent ROS: Denies headache, dizziness Denies chest pain, palpitations some cough no shortness of breath Denies abdominal pain, nausea or vomiting. - Constitutional Vitals: Vital Signs Temp Pulse Resp BP Pulse Ox 97.9 F 81 17 142/83 99 06/18/17 13:28 06/18/17 13:28 06/18/17 13:28 06/18/17 13:28 06/18/17 13:28 Period Temp Pulse Resp BP Sys/Appiah Pulse Ox Last 24 Hr 97.5 F-98.3 F 81-98 17-22 113-142/61-102 92-99 Intake and Output 06/18/17 06/18/17 06/18/17 05:59 13:59 21:59 Intake Total 831 / 831 Output Total 1275 / 1275 450 / 450 Balance -1275 / -1275 381 / 381 Intake & Output: Intake & Output 06/18/17 06/18/17 06/18/17 05:59 13:59 21:59 Intake Total 831 / 831 Output Total 1275 / 1275 450 / 450 Balance -1275 / -1275 381 / 381 Intake: IV 351 / 351 Zithromax 250 mg In Dextrose 5% 250 / 250 in Water 250 ml @ 250 mls/hr IV Q24H [facility] Rx#:[id number] Vitamin B1 100 mg In Sodium 51 / 51 Chloride 0.9% 50 ml @ 50 mls/hr IV Q24H [facility] Rx#:[id number] Rocephin 2 gm In Dextrose 5% in 50 / 50 Water 50 ml @ 100 mls/hr IV Q24H [facility] Rx#:[id number] Oral 480 / 480 Output: Urine Catheter Amount 1275 / 1275 450 / 450 Other: Stool Size Moderate Stool Color Green Stool Consistency Soft # Bowel Movements 1 Exam: Constitutional; Afebrile, cooperative, alert, not in distress. Eyes- No icterus, , No periorbital swelling Ears- Ext ear normal, hearing normal to conversation. Neck- Midline trachea, supple Respiratory system: Air Entry equal on both sides, kevin exp wheezing, no crackles noted. CVS- Rate rhythm regular, S1,S2 heard, no gallop, no rub. Abdomen- Soft nontender abdomen, no organomegaly, no tenderness, no guarding or rigidity, edema present. 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 Medical - PN: Obj Da - Labs CBC & Chem 7: 06/18/17 06:00 06/18/17 04:00 Labs: Abnormal Lab Results 06/18/17 06/18/17 06/17/17 06:00 04:00 18:33 WBC 14.6 H RBC RDW 14.8 H Gran % 88.0 H Lymph % (Auto) 7.7 L [place] % (Auto) Gran # 12.8 H Lymph # (Auto) 1.1 L [place] # (Auto) VBG Lactic Acid Potassium 5.3 H 5.2 H Chloride 94 L Anion Gap BUN 39 H 45 H Creatinine 1.5 H 1.8 H Glucose 164 H 192 H Uric Acid 9.7 H Calcium GGT 51 H Lactate Dehydrogenase 253 H NT-Pro-B Natriuret Pep Albumin 2.9 L Globulin 4.2 H Albumin/Globulin Ratio 0.7 L Triglycerides 166 H 06/17/17 06/17/17 06/16/17 04:00 04:00 15:45 WBC RBC 3.97 L RDW 15.0 H Gran % 93.2 H Lymph % (Auto) 6.2 L [place] % (Auto) 0.2 L Gran # 9.6 H Lymph # (Auto) 0.6 L [place] # (Auto) 0 L VBG Lactic Acid 2.6 H Potassium 6.6 H* Chloride Anion Gap BUN 52 H Creatinine 2.1 H Glucose 164 H Uric Acid 10.4 H Calcium 7.8 L GGT 46 H Lactate Dehydrogenase NT-Pro-B Natriuret Pep Albumin 3.1 L Globulin 4.1 H Albumin/Globulin Ratio 0.8 L Triglycerides 06/16/17 06/16/17 15:45 15:45 WBC 13.3 H RBC 3.89 L RDW 14.7 H Gran % 78.9 H Lymph % (Auto) 13.3 L [place] % (Auto) Gran # 10.5 H Lymph # (Auto) [place] # (Auto) VBG Lactic Acid Potassium 5.4 H Chloride 91 L Anion Gap 20.0 H BUN 67 H Creatinine 3.0 H Glucose 131 H Uric Acid Calcium 7.4 L GGT Lactate Dehydrogenase NT-Pro-B Natriuret Pep 577.0 H Albumin Globulin 4.0 H Albumin/Globulin Ratio 0.9 L Triglycerides Meds: Medications Acetaminophen (Tylenol) 650 mg PO Q6HP PRN PRN Reason: PAIN/FEVER > 101 Hydrocodone Bitart/Acetaminophen ([place] 10/325mg) 1 tab PO Q4H PRN PRN Reason: Pain Last Admin: 06/16/17 22:04 Dose: 1 tab Albuterol/Ipratropium (Duoneb) 3 ml NEB Q4HRT [facility] Last Admin: 06/18/17 11:47 Dose: 3 ml Amlodipine Besylate (Norvasc) 5 mg PO DAILY [facility] Last Admin: 06/18/17 08:34 Dose: 5 mg Bupropion HCl (Wellbutrin Xl) 150 mg PO DAILY [facility] Last Admin: 06/18/17 08:33 Dose: 150 mg Citalopram Hydrobromide (Celexa) 20 mg PO DAILY [facility] Last Admin: 06/18/17 08:33 Dose: 20 mg Clotrimazole (Mycelex Crm 1%) 1 dose TOPICAL BID [facility] Last Admin: 06/18/17 09:57 Dose: 1 dose Cyclobenzaprine HCl (Flexeril) 10 mg PO BIDP PRN PRN Reason: Pain Folic Acid (Folic Acid) 1 mg PO DAILY [facility] Last Admin: 06/18/17 08:33 Dose: 1 mg Fondaparinux (Arixtra) 2.5 mg SQ DAILY [facility] Last Admin: 06/18/17 08:37 Dose: 2.5 mg Furosemide (Lasix) 40 mg PO DAILY [facility] Last Admin: 06/18/17 10:40 Dose: 40 mg Gabapentin (Neurontin) 300 mg PO TIDP PRN PRN Reason: Pain Azithromycin 250 mg/ Dextrose 250 mls @ 250 mls/hr IV Q24H [facility] Stop: 06/20/17 10:59 Last Infusion: 06/18/17 11:02 Dose: Infused Ceftriaxone Sodium 2 gm/ (Dextrose) 50 mls @ 100 mls/hr IV Q24H [facility] Last Infusion: 06/18/17 09:05 Dose: Infused Thiamine HCl 100 mg/ Sodium (Chloride) 51 mls @ 50 mls/hr IV Q24H [facility] Stop: 06/19/17 12:02 Last Infusion: 06/18/17 12:40 Dose: Infused Iron Carb/Multivit/[place]/Folic Acid (Multivitamin W/Minerals) 1 tab PO DAILY [facility] Last Admin: 06/18/17 08:33 Dose: 1 tab Methylprednisolone Sodium Succinate (Solu-Medrol) 62.5 mg IV Q8 [facility] Last Admin: 06/18/17 13:14 Dose: 62.5 mg Naloxone HCl (Narcan) 0.1 mg IV Q2MIN PRN PRN Reason: Opiate Reversal Ondansetron HCl (Zofran) 4 mg IV Q4HP PRN PRN Reason: Nausea And Vomiting Oseltamivir Phosphate (Tamiflu) 75 mg PO BID [facility] Last Admin: 06/18/17 08:33 Dose: 75 mg Sodium Chloride (Saline Flush) 10 ml IV Q8 [facility] Last Admin: 06/18/17 13:15 Dose: 10 ml Vancomycin HCl (Vancomycin Per Pharmacy) 1 order IV ONCE ONE Stop: 06/18/17 14:54 Medical - PN: A/P - Time Spent With Patient Total time spent is greater than 50% in coordination of care (as documented) at patient's floor/unit and/or counseling patient: - Narrative A/P Narrative: A/P Acute hypoxic/ hypercapenic respiratory failure Sepsis with lactic acidosis, resolved Chronic renal failure Pneumonia, Community Acquired Acute COPD Exacerbation Morbid Obesity Hypertension Hyperkalemia Depression Chronic Pain Plan Oxygen via nasal cannula to keep oxygen saturation more than 90. did not need bipap overnight. Doing well clinically, on Rocephin and Zithromax d3 today, vancomycin day 1 today, Tamiflu d3 Blood culture is positive for staph aureus. sensitivity pending, patient echo ordered, results pending, De-escalate antibiotics based on culture, DuoNeb's every 4 hours, IV steroids for COPD exacerbation Resume Home blood pressure medications lactate is normal now patient hyperkalemia persistent, urine K 41, cl undetected, ph 7.0 today but was 5.0 on admission. etiology? on Kayexalate, related to ckd? vs hep related rta ? low k diet for now, d/c hep sq and start on fondaparinaux. phos is neg and ldh is mildly elevated not suggestive of tissue breakdown. resume home medications for depression and chronic pain DVT-fondaparinoux Regular diet DO NOT RESUSCITATE CODE STATUS-patient is okay with BiPAP and intubation
[2017-06-18 15:18] LABS: Blood Urea Nitrogen 38 mg/dl (8-23)
[2017-06-18] MEDS ORDERED: VANCOMYCIN 2,000 MG in 0.9 % SODIUM CHLORIDE 500 ML IV ONE (16:00)
[2017-06-19] MEDS: IPRATROPIUM/ALBUTEROL 3 ML AMPUL.NEB NEB SCH ×3 (03:06→11:50)
[2017-06-19 05:45] LABS: Basophils # (Auto) 0 K/mcL (0.0-0.3); Basophils % (Auto) 0.1 % (0.0-2.0); Eosinophils # (Auto) 0.4 K/mcL (0.0-0.7); Eosinophils % (Auto) 2.8 % (0.0-7.0); Granulocytes % (Auto) 84.8 % (38.0-78.0); Lymphocytes # (Auto) 1.4 K/mcL (1.5-4.8); Lymphocytes % (Auto) 9.4 % (15.5-49.0); Mean Cell Volume 97.6 fL (80.0-100.0); Mean Corpuscular HGB Conc 32.7 g/dL (31.0-36.0); Mean Corpuscular Hemoglobin 31.9 pg (26.0-34.0); Monocytes # (Auto) 0.4 K/mcL (0.1-0.9); Monocytes % (Auto) 2.9 % (1.0-12.0); Platelet Count 456 K/mcL (140-440); RBC 4.38 M/mcL (4.00-5.20); Red Cell Distribution Width 14.9 % (11.5-14.5)
[2017-06-19] MEDS: 0.9 % SODIUM CHLORIDE 10 ML SYRINGE IV SCH ×2 (05:52→09:25)
[2017-06-19] MEDS: methylPREDNISolone SOD SUCC 125 MG/2 ML VIAL IV SCH (05:52)
[2017-06-19 06:16] LABS: ALT/SGPT 14 U/l (0-40); Albumin 3.2 gm/dL (3.2-5.2); Albumin/Globulin Ratio 0.8 (1.0-2.3); Alkaline Phosphatase 66 U/L (39-117); Bilirubin,Direct < 0.2 mg/dL (0.0-0.3); Blood Urea Nitrogen 39 mg/dl (8-23); Gamma Glutamyl Transpeptidase 52 U/L (5-36); Uric Acid 9.9 mg/dL (2.5-8.0)
[2017-06-19] MEDS: cefTRIAXone 2 GM in DEXTROSE 5% IN WATER 50 ML IV SCH (08:29)
[2017-06-19] MEDS: MULTIVIT,THER IRON,CA,FA & MIN 1 TABLET PO SCH (08:30)
[2017-06-19] MEDS: buPROPion 150 MG TAB.XL.24H PO SCH (08:30)
[2017-06-19] MEDS: amLODIPine 5 MG TABLET PO SCH (08:30)
[2017-06-19] MEDS: OSELTAMIVIR PHOSPHATE 75 MG CAPSULE PO SCH (08:30)
[2017-06-19] MEDS: FONDAPARINUX SODIUM 2.5 MG/0.5 ML SYRINGE SQ SCH (08:30)
[2017-06-19] MEDS: FOLIC ACID 1 MG TABLET PO SCH (08:31)
[2017-06-19] MEDS: CLOTRIMAZOLE CRM 1% 1 DOSE TUBE TOPICAL SCH (08:31)
[2017-06-19] MEDS: CITALOPRAM 20 MG TABLET PO SCH (08:31)
[2017-06-19] MEDS: FUROSEMIDE 40 MG TABLET PO SCH (08:31)
[2017-06-19] MEDS ORDERED: VANCOMYCIN 1,500 MG in 0.9 % SODIUM CHLORIDE 500 ML IV SCH (09:00)
[2017-06-19] MEDS: AZITHROMYCIN 250 MG in DEXTROSE 5% IN WATER 250 ML IV SCH (11:14)
--- NOTE | 2017-06-19 11:21 | Discharge Summary ---
Medical - DS: Prov Patient information: Note initiated : 06/19/17 at 11:14 am Service Date, if different from initiated Date: [] Patient: Destiny Guy 61 y/o F admitted on 06/16/17 for Weakness, Shakey, Wheezing/Pneumonia. Chief Complaint: [] Date of admission: 06/16/17 18:43 Discharge date: 06/19/17 Primary care physician: Kia Giles Admitting clinician: aJdon Gordon Consults: 06/16/17 17:34 Consult to Physician [CONS] Stat Comment: Consulting Provider: Jadon Gordon Reason For Exam: Physician to Consult Discharging clinician: Jadon Gordon Medical - DS: Meds - Discharge Medications Prescriptions: Albuterol Sulfate [Ventolin] 2 puff INH Q6 #1 inhaler Amoxicillin/Potassium Clav [Augmentin] 875 mg PO Q12H #24 tab Oseltamivir Phosphate [Tamiflu] 75 mg PO BID #6 cap predniSONE [Prednisone] 10 mg PO QAC #24 tab Active and Home Medications: Home Medications Acetaminophen W/Codeine #3 [Tylenol #3] 1 tab PO PRN PRN 07/13/15 [History Confirmed 07/13/15 Last Taken Unknown] Gabapentin [Neurontin] 100 mg PO BID 07/13/15 [History Confirmed 07/13/15 Last Taken Unknown] Citalopram [Celexa] 20 mg PO DAILY 06/16/17 [History Confirmed 06/16/17 Last Taken Unknown] Cyclobenzaprine [Flexeril] 10 mg PO BIDP PRN 06/16/17 [History Confirmed Last Taken Unknown] Furosemide [Lasix] 40 mg PO DAILY 06/16/17 [History Confirmed 06/16/17 Last Taken Unknown] Gabapentin 600 mg PO TIDP PRN 06/16/17 [History Confirmed 06/16/17 Last Taken Unknown] HYDROcodone/APAP 10/325MG [[place] 10-325Mg] 1 tab PO Q4H PRN 06/16/17 [History Confirmed 06/16/17 Last Taken Unknown] Lisinopril [Zestril] 20 mg PO DAILY 06/16/17 [History Confirmed 06/16/17 Last Taken Unknown] Potassium Chloride [Klor-Con 10] 20 meq PO BID 06/16/17 [History Confirmed 06/16 Last Taken Unknown] amLODIPine [Norvasc] 5 mg PO DAILY 06/16/17 [History Confirmed 06/16/17 Last Taken Unknown] buPROPion [Wellbutrin Xl] 150 mg PO DAILY 06/16/17 [History Confirmed 06/16/17 Last Taken Unknown] Medical - DS: Hosp Hospital course: Ms. Guy is a 61 year old Female with h/o hypertension, morbid obesity, chronic kidney disease, COPD long-term smoker who lives with her sister at the house presents to the emergency because of weakness going on for the last 3-4 days before admission. The patient notes that for the last 3-4 days she has had difficulty in getting up off a chair or bed and then moving around. She admits to being fatigued finding it difficult to carry out her daily activities. She should has shortness of breath on exertion. She denies any other acute complaints. In the emergency room, the patient was hypoxic on presentation, which responded well to 2 L of oxygen. The patient chest x-ray shows bilateral pneumonia, she has leukocytosis and elevated lactic acid at 2.6. Her creatinine was 3.0 which is nearly at her baseline. Her potassium is mildly elevated at 5.4, patient takes lisinopril and potassium supplements at home she also takes some Lasix. The patient EKG shows sinus rhythm, poor voltage, possible anterior septal Mi old The patient is being admitted to the hospital for further management Pneumonia: X ray showed bilateral pna, patient blood cx positive for mssa staph , 1 out of 4 bottles, also had staph epidermis, coag neg staph. The patient repeat cx was negative. Patient was given broad spectrum abx, rocehpin, vanco, zithromax with good response. His Staph is sensitive to penicillin. The patient has responded well to treatment. she will be discharged home to complete the course of antibiotics. Will give 14 day course in total. COPD: Pt has wheezing on presentation, does not take inhalers, likely reactive airway disease, does have h/o smoking though so copd is possible. Responded well to steroids and nebulizer treatments. Plan to continue same for now. steroid taper at discharge. albuterol inhaler prescribed. Hyperkalemia: K was elevated on admission, which worsened on day 2, needed kayexalate, the patient K came back to normal after the improvement in renal function. patient was taking lasix, lisinopril and kcl supplementation at home. Patient is advised to avoid the KCL supplementation. Renal failure: Creat on presentation was elevated at 3.0 which based on labs here seemed like her baseline, but her creat improved in the hospital with fluids and holding her medications. Her discharge creat is 1.3, she will benefit from close monitoring of her renal function and electrolytes after discharge. I am resuming her felicity and lasix at discharge. should her renal function worsen, she will benefit from a renal duplex study to evaluate for renal artery stenosis. I will leave this to the discretion fo the PCP. Echo done for bacteremia showed normal lvef, no vegetations, but a atrial septal defect, left right shunt, will benefit from evaluation by cardiology as outpatient. PCP to follow and make appropriate referral. The rest of the stay in the hospital was uneventful. At the time of discharge, she is tolerating po diet well, ambulatory and in good spirits. Discharge diagnosis: Pneumonia - Time Spent with Patient Total time spent providing and/or coordinating discharge services: Greater than 30 minutes Medical - DS: Exam - Constitutional Vitals: Vital Signs Temp Pulse Resp BP BP Pulse Ox 06/19/17 08:55 98.4 F 18 137/83 90 06/19/17 07:45 93 06/19/17 06:58 98.0 F 16 176/96 97 06/19/17 06:50 176/96 97 06/19/17 04:01 98.1 F 18 141/83 90 06/19/17 03:00 78 18 06/19/17 00:01 18 135/75 93 06/18/17 23:33 88 18 95 06/18/17 20:29 97.7 F 20 126/79 98 06/18/17 20:00 93 06/18/17 19:05 80 18 06/18/17 16:22 97.3 F 92 H 18 133/80 95 06/18/17 15:27 88 18 92 06/18/17 13:28 97.9 F 81 17 142/83 99 06/18/17 12:01 85 18 Intake and Output 06/18/17 06/19/17 06/19/17 21:59 05:59 13:59 Intake Total 180 / 180 360 / 360 290 / 290 Output Total 600 / 600 675 / 675 1100 / 1100 Balance -420 / -420 -315 / -315 -810 / -810 Intake: IV 50 / 50 Rocephin 2 gm In Dextrose 5% in 50 / 50 Water 50 ml @ 100 mls/hr IV Q24H [facility] Rx#:[id number] Oral 180 / 180 360 / 360 240 / 240 Output: Urine Catheter Amount 600 / 600 675 / 675 1100 / 1100 Uretheral ([place]ar[place]) 600 / 600 Other: # Bowel Movements 1 Weight 343 lb Additional comments: Constitutional; Afebrile, cooperative, alert, not in distress. Eyes- No icterus, , No periorbital swelling Ears- Ext ear normal, hearing normal to conversation. Neck- Midline trachea, supple Respiratory system: Air Entry equal on both sides, No crackles, very mild wheezing, much improved from admission. Pt on room air. CVS- Rate rhythm regular, S1,S2 heard, no gallop, no rub. 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 Medical - DS: Data Procedures and tests throughout hospitalization: Echo normal lvef no vegatations Atrial septal defect noted, with left to right shunt. chest x ray IMPRESSION: Mild bilateral infiltrates which could be due to pneumonia or congestive heart failure Labs on day of discharge: Labs from last 24 hours 06/19/17 06/19/17 06/18/17 03:55 03:55 14:25 WBC 14.8 H RBC 4.38 Hgb 14.0 Hct 42.7 MCV 97.6 MCH 31.9 MCHC 32.7 RDW 14.9 H Plt Count 456 H MPV 8.1 Gran % 84.8 H Lymph % (Auto) 9.4 L Major % (Auto) 2.9 Eos % (Auto) 2.8 Baso % (Auto) 0.1 Gran # 12.6 H Lymph # (Auto) 1.4 L Major # (Auto) 0.4 Eos # (Auto) 0.4 Baso # (Auto) 0 Sodium 139 138 Potassium 3.8 4.1 Chloride 94 L 93 L Carbon Dioxide 28 28 Anion Gap 17.0 H 17.0 H BUN 39 H 38 H Creatinine 1.3 H 1.5 H GFR Calculation 44 37 Glucose 157 H 139 H Uric Acid 9.9 H Calcium 8.9 9.0 Phosphorus 4.0 Magnesium 1.7 Total Bilirubin 0.2 Direct Bilirubin < 0.2 GGT 52 H AST 12 ALT 14 Alkaline Phosphatase 66 Lactate Dehydrogenase 169 Total Protein 7.1 Albumin 3.2 Globulin 3.9 H Albumin/Globulin Ratio 0.8 L Triglycerides 194 H Preliminary micro results at discharge 06/16/17 15:55 Blood Culture - Preliminary Blood 06/17/17 12:21 Blood Culture - Preliminary Blood 06/17/17 12:29 Blood Culture - Preliminary Blood 06/16/17 15:40 Blood Culture - Preliminary Blood Gram positive cocci Medical - DS: A/P - Patient/Caregiver Discharge Instructions Activity: increase activity as tolerated Diet: Cardiac Additional Instructions: take antibiotics for another 12 days , one tablet twice daily Your potassium level was high in the hospital. DO not take potassium supplements after discharge, Talk to your regular doctor and make sure she checks your potassium and kidney function in 1 week after discharge. Take prednisone as directed on the prescription, take the medication with food. Use the inhaler for albuterol once every 4 hrs for 1 week then every 4 hrs as needed for shortness of breath. Your Echo cardiogram shows a small hole in the heart, this needs to be evaluated by a security control assessor. Please talk to your PCP for a referral to one. Please follow up with PCP in 1 week Go to the ER if worsening chest pain, fever, shortness of breath or any other concerning symptoms. - Follow up Plan Follow up with: Kia Giles MD [Primary Care Provider] - Disposition: Home, Self-Care Prognosis: Fair Rehab Potential: Fair I certify that the patient requires SNF services: No Overall status at discharge: patient is progressing back to baseline
[2017-06-19] MEDS: THIAMINE 100 MG in 0.9 % SODIUM CHLORIDE 50 ML IV SCH (11:24)
== END 2017-06-19 14:11 | disposition home or self-care (01) | DRG 871 ==
LOC: ED 15:26 → ICU 18:43
PROVIDERS: ADMIT Internal Medicine; ATTEND Internal Medicine